=== PATIENT | male | born 1975 | race Caucasian/White ===

== ENCOUNTER 2018-04-04 00:21 | Emergency (ER) | payer OTHER, SELFPAY ==
[2018-04-04] VITALS (11 sets, daily range): BP systolic 129–147; BP diastolic 60–101; PULSE 75–115; RESP 14–23; TEMP 36.6–36.7; O2SAT 95–99; BMI 37.2
--- NOTE | 2018-04-04 00:56 | RAD_ITS ---
STUDY: X-RAY - LEFT ANKLE REASON FOR EXAM: Male, 42 years old. Fell 20 feet from ladder, deformity TECHNIQUE: 3 view(s) of the ankle. COMPARISON: None. FINDINGS: A moderately displaced oblique fracture of the medial malleolus is noted. A moderately displaced coronal fracture of the distal tibial metaphysis and epiphysis is noted with volar displacement of distal anterior fracture fragment. A hairline fracture of the distal femoral diaphysis is present. Mild ankle mortise widening. Hardware in the lateral malleolus. Soft tissue swelling. RAD/Ankle min 3 Views IMPRESSION: Multiple distal tibial fractures as described. Widening of the ankle mortise. Electronically Signed: Ulysses Sheppard MD at 2:05 EST Tel , Service support ,
--- NOTE | 2018-04-04 00:56 | RAD_ITS ---
STUDY: X-RAY - LEFT FOOT CLINICAL: Male, 42 years old. Left foot pain status post fall. TECHNIQUE: 3 view(s) of the foot. COMPARISON: None. FINDINGS: Pilon fracture of the distal tibia. Normal talus, calcaneus, and tarsal bones. Mild degenerative change of the intertarsal joints. Normal metatarsi. Moderate degenerative change of the first metatarsophalangeal joint. Normal tibial and fibular sesamoid bones. Normal interphalangeal joint of the great toe. Normal phalanges of the great toe. Normal second through fifth metatarsophalangeal joints. Normal interphalangeal joints and phalanges of the lesser toes. Anterior soft tissue swelling. RAD/Foot min 3 Views IMPRESSION: 1. Comminuted pilon fracture of distal tibia. 2. 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 Electronically Signed: Yousif Sullivan MD at 2:23 EST Tel , Service support ,
[2018-04-04] MEDS: Morphine 4 MG/ML Syringe IV (01:11)
--- NOTE | 2018-04-04 01:14 | ED.RN ---
PER CHARGE NURSE, PT WILL FOLLOW UP WITH [facility] TOMORROW FOR WORKERS COMP TESTING.
--- NOTE | 2018-04-04 02:44 | CT_ITS ---
STUDY: CT ANKLE WITHOUT CONTRAST, LEFT REASON FOR EXAM: Male, 42 years old. Fall from 20 feet RADIATION DOSAGE (If Supplied By Facility): CTDIvol = ( 15.35 ) mGy, DLP = ( 645.43 ) mGycm. Individualized dose optimization techniques were used for this CT.? TECHNIQUE: Axial CT images of the left ankle were performed without contrast followed by sagittal and coronal reconstructions. 3-D reconstructions were also obtained. COMPARISON: Radiographs same day FINDINGS: A comminuted fracture of the distal tibia is noted. This is coronal and oblique in orientation with mild to moderate displacement of fracture fragments. The fracture extends upwards to the dorsal distal diaphyseal cortex. There is associated mild widening of the ankle mortise. There is mild anterior translation of the talus relative to the tibial fragments. A small cortical impaction injury is noted involving the dorsal talar dome. Subtalar joints are intact. No other fractures are seen involving the foot. Diffuse soft tissue swelling. Hardware in the lateral malleolus. CT/Extremity Lower without Contra IMPRESSION: Comminuted fracture of the distal tibia as described with associated mortise widening. Mild anterior translation of the talus relative to the tibia. Small cortical impaction injury of the dorsal talar dome. Electronically Signed: Ulysses Sheppard MD at 3:50 EST Tel , Service support ,
[2018-04-04] MEDS: Propofol 200 MG/20 ML Vial IV BOLUS (02:45)
[2018-04-04] MEDS: fentaNYL 100 MCG/2 ML Ampul 50 MCG IV (02:50)
--- NOTE | 2018-04-04 03:19 | ED.DCSUM_ITS ---
- ER Visit Summary Date of Service: 04/04/18 Chief Complaint: Fall History of Present Illness: The patient is a 42 M who fell down an extension ladder about 20 feet. He landed mostly on his left ankle. He denies a head or neck injury. Denies head or neck pain. Denies loss of consciousness. Denies arm pain, chest pain, abdominal pain, back pain, or right leg pain. Denies blood thinners. Physical Examination: Afebrile and vital signs unremarkable. Head and neck are atraumatic. Heart regular. Lungs clear. Chest nontender. Back nontender. Abdomen nontender. Hips stable. Right leg atraumatic. Left leg shows tenderness, swelling, and deformity to the left ankle. Neurovascular intact distally. Upper extremities atraumatic. Test Results: X-rays of the left ankle show a Pilon type fracture. Foot x-rays were unremarkable otherwise. CT is pending. Emergency Department Course and Treatment: Patient was discussed with Dr. Caballero. He referred the patient to podiatry. I spoke with Dr. Barba who is on- call. His partners will follow up with the patient in the office. He did advise attempting reduction and then recommended splinting with a posterior splint and 2 layers of wrap with padding and an additional Mg wrap. Patient should call for follow-up in the office tomorrow morning and can likely go to surgery on Sunday. Patient gave consent for procedural sedation. He received a total of 150 mg of propofol while on the monitor. He had no desaturations or other abnormal vital signs. Patient was placed in a posterior splint with padding as instructed. CT with 3D recons was ordered, but results are pending at this time. Patient tolerated the procedure well. He is neurovascular intact distally afterwards. Patient was given a prescription for Percocet as well as a take home pack for oxycodone. Follow-up with podiatry tomorrow morning. Treatment Plan: As above Disposition: Discharge Impression: 1. Pilon fracture left ankle This note was generated with [employer] dictation software. It may contain incorrect words, spelling, and punctuation that were not noted in review of the chart prior to signing ED Disposition - Plan for ED Patient: Referrals: Care Physician,No Primary [Primary Care Provider] -
--- NOTE | 2018-04-04 03:19 | ED.DEP ---
ED Disposition - Plan for ED Patient: Instructions: ED Fx Ankle General Prescriptions: Oxycodone HCl/Acetaminophen [Percocet 5/325] 1 tab PO Q6H PRN PRN 3 Days #12 tab PRN Reason: Pain Referrals: Ish Sloan DPM [STAFF PHYSICIAN] - Johanne Burrows DPM [STAFF PHYSICIAN] -
[2018-04-04] MEDS: oxyCODONE 5 MG Tablet PO (03:21)
--- NOTE | 2018-04-04 05:33 | ED.RN ---
Addendum entered by Fernanda Bailey 04/04/18 05:36: per bunny charge note,place pt under same visit. Original Note: pt was discharged home with oral pain meds,pt took two pain meds and not controlled.pt back for pain controll.
[2018-04-04] MEDS: fentaNYL 100 MCG/2 ML Ampul IV (05:49)
== END 2018-04-04 06:34 | disposition short-term general hospital (02) ==
LOC: ED 01:21
PROVIDERS: Emergency Provider Emergency Medicine
DX: S82.872A Displaced pilon fracture of left tibia, initial encounter for closed fracture (principal); W11.XXXA Fall on and from ladder, initial encounter; Y93.9 Activity, unspecified; Y92.9 Unspecified place or not applicable; Y99.9 Unspecified external cause status; Z72.0 Tobacco use
CPT/HCPCS: 73610; 73630; 73700; 99152; 99285; J7030; A4216

== ENCOUNTER → 2022-06-19 | Outpatient (CLI) | payer OTHER, SELFPAY ==
--- NOTE | 2022-06-19 12:41 | MRI_ITS ---
EXAM: MR LEFT LOWER EXTREMITY WITHOUT INTRAVENOUS CONTRAST, ANKLE CLINICAL INDICATION: None provided. LT ANKLE, TRAUMATIC ARTHROPATHY TECHNIQUE: Multiplanar and multisequence MR images of the left ankle without intravenous contrast. COMPARISON: April 04, 2017 FINDINGS: LIGAMENTS: ANTERIOR TALOFIBULAR: Unremarkable. Intact. POSTERIOR TALOFIBULAR: Unremarkable. Intact. ANTERIOR TIBIOFIBULAR: Unremarkable. Intact. POSTERIOR TIBIOFIBULAR: Unremarkable. Intact. CALCANEOFIBULAR: Unremarkable. Intact. DELTOID: Unremarkable. Intact. SPRING: Unremarkable. Intact. LISFRANC: Unremarkable. Intact. TENDONS: ACHILLES: Achilles tendon is normal. Plantar aponeurosis is normal. FLEXOR: Unremarkable. Intact. EXTENSOR: Unremarkable. Intact. PERONEAL: Unremarkable. Intact. TIBIALIS ANTERIOR: Unremarkable. Intact. TIBIALIS POSTERIOR: Unremarkable. Intact. MUSCLES: Unremarkable. Normal bulk and signal. FLUID: Small to moderate anterior tibiotalar joint effusion. No posterior subtalar joint effusion. SINUS TARSI: Sinus Tarsi is normal. TARSAL TUNNEL: Unremarkable. PLANTAR FASCIA: Unremarkable. Intact. CARTILAGE: Unremarkable. No osteochondral lesion. Articular cartilage intact. BONES/JOINTS: Hardware at the distal tibia and distal fibula resulting susceptibility artifact, limiting assessment of adjacent tissues. Remaining ankle tendons are intact. Talar dome intact. No concerning bone marrow signal alterations. OTHER SOFT TISSUES: Unremarkable. MRI/Lower Ext Joint Only (Routine) IMPRESSION: 1. Tibiotalar joint effusion anteriorly with synovitis. 2. No bone marrow signal alterations on this exam. Electronically Signed: Rosalio Cooley MD at 4:16 EDT ,
== END | disposition home or self-care (01) ==
LOC: MRI 12:07
DX: M12.572 Traumatic arthropathy, left ankle and foot (principal)
CPT/HCPCS: 73721